=== PATIENT | female | born 1965 | race Caucasian/White ===

== ENCOUNTER 2017-05-05 11:48 | Outpatient (CLI) | END 2017-05-05 11:49 | disposition home or self-care (01) | LOC: RHC-LAB 11:48 | PROVIDERS: ATTEND Emergency Medicine | DX: M81.0 Age-related osteoporosis without current pathological fracture (principal); E66.9 Obesity, unspecified; K21.9 Gastro-esophageal reflux disease without esophagitis; Z98.84 Bariatric surgery status | CPT/HCPCS: 36415; 80053; 80061; 82306; 84443; 85025 ==

== ENCOUNTER 2017-05-26 07:54 | Outpatient (CLI) ==
--- NOTE | 2017-05-26 11:40 | MAMMO ---
EXAM: Digital screening mammogram with tomosynthesis HISTORY: Screening COMPARISON: 09/18/2013 FINDINGS: Digital MLO and CC views of the right and left breast were performed. Tomosynthesis was performed. Computer aided detection utilized. There are scattered fibroglandular densities. There is no evidence for mass, asymmetry, distortion, or suspicious calcifications in either breast. IMPRESSION: 1. No evidence of malignancy in the right or left breast. 2. Annual screening mammogram is recommended in one year. BIRADS category 1, negative examination
== END 2017-05-26 07:55 | disposition home or self-care (01) ==
LOC: RAD 07:54
PROVIDERS: ATTEND Emergency Medicine
DX: Z12.31 Encounter for screening mammogram for malignant neoplasm of breast (principal)
CPT/HCPCS: 77067

== ENCOUNTER 2017-06-19 08:26 | Emergency (ER) ==
[2017-06-19 08:33] VITALS: BP 161/88; TEMP 97.1; BMI 46.0
[2017-06-19] MEDS ORDERED: MORPHINE 4 MG/ML SYRINGE IM STA (08:42)
[2017-06-19] MEDS ORDERED: ZOFRAN 4 MG/2 ML IM STA (08:43)
--- NOTE | 2017-06-19 09:38 | ED.PDOC ---
General ED Provider: Dr. ALVARO LENTZ Chief Complaint: Back Pain Stated Complaint: back pain Time Seen by Physician: 08:30 Mode of Arrival: Walk-In Information Source: Patient Exam Limitations: No limitations Primary Care Provider: REJI MILLERXavi Nursing and Triage Documentation Reviewed and Agree: Yes Reviewed sepsis parameters & appropriate labs ordered?: Yes System Inflammatory Response Syndrome: Not Applicable Sepsis Protocol: For patient's 13 years and over: Temp is 96.8 and below OR 101 and greater Pulse >90 BPM Resp >20/minute Acutely Altered Mental Status Are patient's symptoms suggestive of a new infection, such as: -Pneumonia -Skin, Soft Tissue -Endocarditis -UTI -Bone, Joint Infection -Implantable Device -Acute Abdominal Infection -Wound Infection -Meningitis -Blood Stream Catheter Infection -Unknown System Inflammatory Response Syndrome: Not Applicable Musculoskeletal Complaint Exam - Back Pain Complaint/Exam Mechanism of Injury: Reports: No known trauma Onset/Duration: 1 day right flank with urinary symptoms Symptoms Are: Still present Timing: Intermittent Episodes Lasting: Hours Initial Severity: Moderate Current Severity: Moderate Location: Reports: Discrete Character: Reports: Aching Aggravating: Reports: Movements Alleviating: Reports: Rest Associated Signs and Symptoms: Reports: Flank pain (right) Related History: Reports: Similar episode TAD Risk Factors: Reports: None AAA Risk Factors: Reports: None Cauda Equina Risk Factors: Reports: None Epidural Abcess Risk Factors: Reports: None Related Surgical History: Reports: None Focal Tenderness: No Paraspinal Muscle Tenderness: No Paraspinal Muscle Spasm: No Scoliosis: No Lordosis: No Kyphosis: No SLR Test: Right Negative, Left Negative Hip Motion Testing Pain: Right Negative, Left Negative Focal Weakness: Present: None Focal Sensory Loss: Present: None Gait: Present: Normal Differential Diagnoses: Strain, Sprain Review of Systems - Review Of Systems Constitutional: Reports: No symptoms Eyes: Reports: No symptoms Ears, Nose, Mouth, Throat: Reports: No symptoms Respiratory: Reports: No symptoms Cardiac: Reports: No symptoms GI: Reports: No symptoms : Reports: No symptoms Musculoskeletal: Reports: Back pain Skin: Reports: No symptoms Neurological: Reports: No symptoms Endocrine: Reports: No symptoms Hematologic/Lymphatic: Reports: No symptoms All Other Systems: Reviewed and Negative Past Medical History - Past Medical History Previously Healthy: Yes Endocrine: Reports: None Cardiovascular: Reports: None Respiratory: Reports: None Hematological: Reports: None Gastrointestinal: Reports: GERD Genitourinary: Reports: None Neuro/Psych: Reports: None Musculoskeletal: Reports: None Cancer: Reports: None Last Menstrual Period: N/A - Surgical History General Surgical History: Reports: None - Family History Family History: Reports: None - Social History Smoking Status: Never smoker Hx Substance Use: No Alcohol Screening: None - Immunizations Tetanus Shot up to Date: Yes Physical Exam - Physical Exam Appearance: Well-appearing, No pain distress, Well-nourished Eyes: ARISTIDES, EOMI, Conjunctiva clear ENT: Ears normal, Nose normal, Oropharynx normal Respiratory: Airway patent, Breath sounds clear, Breath sounds equal, Respirations nonlabored Cardiovascular: RRR, Pulses normal, No rub, No murmur GI/: Soft, Nontender, No masses, Bowel sounds normal, No Organomegaly Musculoskeletal: Normal strength, ROM intact, No edema, No calf tenderness Skin: Warm, Dry, Normal color Neurological: Sensation intact, Motor intact, Reflexes intact, Cranial nerves intact, Alert, Oriented Psychiatric: Affect appropriate, Mood appropriate Interpretation - Radiology Interpretation Radiology Interpretation By: Radiologist Radiology Results: No acute changes Critical Care Note - Critical Care Note Total Time (mins): 0 Course - Course Hematology/Chemistry: 06/19/17 08:50 06/19/17 08:50 Orders, Labs, Meds: Lab Review 06/19/17 06/19/17 06/19/17 08:50 08:50 08:50 WBC 7.72 RBC 4.65 Hgb 15.0 Hct 42.9 MCV 92.3 MCH 32.3 H MCHC 35.0 RDW Coeff of Zeny 12.2 Plt Count 239 Immature Gran % (Auto) 0.1 Neut % (Auto) 70.3 Lymph % (Auto) 22.2 Davison % (Auto) 5.7 Eos % (Auto) 1.3 Baso % (Auto) 0.4 Immature Gran # (Auto) 0.0 Neut # (Auto) 5.4 Lymph # (Auto) 1.7 Davison # (Auto) 0.4 Eos # (Auto) 0.1 Baso # (Auto) 0.0 Sodium 139 Potassium 3.6 Chloride 107 Carbon Dioxide 21 Anion Gap 14.6 BUN 14 Creatinine 0.64 Estimated GFR (MDRD) 97.00 BUN/Creatinine Ratio 21.87 Glucose 90 Calcium 9.8 Total Bilirubin 0.5 AST 17 ALT 24 Alkaline Phosphatase 87 Total Protein 7.8 Albumin 4.4 Globulin 3.4 Albumin/Globulin Ratio 1.29 Urine Color Yellow Urine Clarity Clear Urine pH 5.5 Ur Specific [place] <=1.005 Urine Protein Negative Urine Glucose (UA) Negative Urine Ketones Negative Urine Blood Negative Urine Nitrite Negative Urine Bilirubin Negative Urine Urobilinogen 0.2 Ur Leukocyte Esterase Trace Urine Microscopic WBC 10-20 Ur Squamous Epith Cells 20-30 Urine Bacteria Trace Orders Category Date Time Status CBC W/ AUTO DIFF Stat LAB 06/19/17 08:39 Ordered COMPREHENSIVE METABOLIC PANEL Stat LAB 06/19/17 08:39 Ordered URINALYSIS C & S IF INDICATED Stat LAB 06/19/17 08:39 Uncollected URINE CULTURE Stat LAB 06/19/17 08:50 Received Morphine Sulfate [Morphine 4 mg/ml Syringe] MEDS 06/19/17 08:42 Stat 4 mg IM ONCE STA Ondansetron HCl/Pf [Zofran 4 mg/2 ml] MEDS 06/19/17 08:43 Stat 4 mg IM ONCE STA CT ABD/PEL WO RENAL STONE PROT Stat RADS 06/19/17 08:38 Ordered Medications Discontinued Medications Generic Name Dose Route Start Last Admin Trade Name Freq PRN Reason Stop Dose Admin Morphine Sulfate 4 mg 06/19/17 08:42 06/19/17 08:55 Morphine 4 Mg/Ml Syringe IM 06/19/17 08:43 4 mg ONCE STA Administration Ondansetron HCl 4 mg 06/19/17 08:43 06/19/17 08:55 Zofran 4 Mg/2 Ml IM 06/19/17 08:44 4 mg ONCE STA Administration Vital Signs: Temp Pulse Resp BP Pulse Ox 06/19/17 08:26 97.1 F L 67 20 161/88 H 97 Departure - Departure Time of Disposition: 10:10 Disposition: HOME SELF-CARE Discharge Problem: Backache Instructions: Flank Pain (ED) Condition: Good Pt referred to PMD for follow-up: Yes IPMP verified?: No Additional Instructions: Please call your Family Physician as soon as possible to schedule a follow-up appointment. Allergies/Adverse Reactions: Allergies Pollin Allergy (Intermediate, Uncoded 05/05/17 10:20) Sneezing, itchy eyes Home Medications: Ambulatory Orders Potassium Gluconate [Potassium] 99 mg PO DAILY 06/06/17 Hydrocodone/Acetaminophen [Winn 5-325 Tablet] 1 each PO Q6HR PRN #12 tablet Disposition Discussed With: Patient
--- NOTE | 2017-06-19 09:49 | CT ---
EXAM: CT Abdomen without contrast. CT Pelvis without contrast. HISTORY: Right flank pain. COMPARISON: None available. TECHNIQUE: Multiple axial images of the abdomen and pelvis were obtained without intravenous contras t. Images were reformatted in the sagittal and coronal plane. FINDINGS: Please note that evaluation of the abdominal and pelvic structures is limited due to lack of intravenous contrast. Subsegmental atelectasis noted in the lung bases. Degenerative changes present in the spine. Gallbladder is absent. The liver, pancreas, spleen, and adrenal glands demonstrate normal contour. Punctate nonobstructing left renal calculus noted. No right renal calculi are seen. No hydronephros is or perinephric inflammation detected. No ureteral or bladder calculi are seen. Small hiatal hernia noted. Suspect previous Obie-en-Y gastric bypass. There is no evidence for annalisa l obstruction or acute inflammation. The appendix is not seen. Mesh present along the ventral abdom inal wall. Recurrent fat-containing ventral hernia is present. No cystic inflammation identified. Uterus demonstrates normal contour. No free fluid or free air identified. Subcutaneous air in the le ft gluteal region likely due to subcutaneous injection. IMPRESSION: 1. Left nephrolithiasis without obstructive uropathy. 2. No acute inflammatory process in the abdomen or pelvis.
== END 2017-06-19 10:01 | disposition home or self-care (01) ==
LOC: ED 08:26
DX: M54.9 Dorsalgia, unspecified (principal); R10.9 Unspecified abdominal pain; R39.9 Unspecified symptoms and signs involving the genitourinary system
CPT/HCPCS: 36415; 74176; 80053; 81001; 85025; 87086; 96372; 99283

== ENCOUNTER 2017-06-30 12:27 | Outpatient (CLI) ==
--- NOTE | 2017-06-30 13:53 | DI ---
EXAM: Thoracolumbar spine two views HISTORY: Pain and thoracic spine. FINDINGS: There is mild scoliosis. Exaggerated thoracic kyphosis. Exaggerated lumbar lordosis. No acute fracture is identified. There is mild degenerative endplate and disc changes of the mid-to-low er thoracic spine. Bridging anterior osteophytic spurring is noted at the thoracic level. IMPRESSION: Degenerative changes of the spine. No acute radiographic findings.
== END 2017-06-30 12:28 | disposition home or self-care (01) ==
LOC: RAD 12:27
PROVIDERS: ATTEND Emergency Medicine
DX: M54.6 Pain in thoracic spine (principal)

== ENCOUNTER 2018-03-19 14:56 | Outpatient (CLI) | END 2018-03-19 14:57 | disposition home or self-care (01) | LOC: LAB 14:56 | PROVIDERS: ATTEND Nurse Practitioner Family | DX: R60.0 Localized edema (principal); Z79.1 Long term (current) use of non-steroidal anti-inflammatories (NSAID); Z79.899 Other long term (current) drug therapy | CPT/HCPCS: 36415; 80048; 85025 ==

== ENCOUNTER 2018-05-28 09:31 | Outpatient (CLI) ==
--- NOTE | 2018-05-28 11:32 | DI ---
EXAM: LEFT KNEE. HISTORY: Left knee pain FINDINGS: Left knee four view. There is moderate to severe tricompartment osteoarthritis. No fract ure or joint effusion. Joints are intact. Soft tissues reveal no acute finding IMPRESSION: 1. Tricompartment osteoarthritis.
--- NOTE | 2018-05-28 11:34 | DI ---
EXAM: RIGHT KNEE. HISTORY: Knee pain. FINDINGS: Right knee four view. There is moderately severe tricompartment osteoarthritis. No fract ure or dislocation is identified. No joint effusion is seen. IMPRESSION: 1. Tricompartment osteoarthritis.
--- NOTE | 2018-05-28 12:11 | MAMMO ---
EXAM: Digital screening mammogram with tomosynthesis HISTORY: Screening COMPARISON: 05/26/2017 FINDINGS: Digital MLO and CC views of the right and left breast were performed. Tomosynthesis was performed. Computer aided detection utilized. There are scattered fibroglandular densities. There is no evidence for mass, asymmetry, distortion, or suspicious calcifications in either breast. IMPRESSION: 1. No evidence of malignancy in the right or left breast. 2. Annual screening mammogram is recommended in one year. BIRADS category 1, negative examination
== END 2018-05-28 09:32 | disposition home or self-care (01) ==
LOC: RAD 09:31
PROVIDERS: ATTEND Nurse Practitioner Family
DX: Z12.31 Encounter for screening mammogram for malignant neoplasm of breast (principal)

== ENCOUNTER 2018-07-03 08:23 | Outpatient (RCR) ==
--- NOTE | 2018-07-03 09:36 | RS.OPPTEV2 ---
Date of Note: 07/03/18 Visit #: 1 Number of visits approved by Insurance: n/a Date of Evaluation: 07/03/18 Payer Source: Insurance Surgery Performed?: No Treatment Diagnosis: OA L knee History of Condition/Mechanism of Injury:: pt with long hx of OA B knees, pt scheduled to have L TKR on 07/10/18. pt plans to come to [facility] for outpatient PT. Prior Level of Function.....Patient was independent with: ADL's, Self Care, Work /Vocation (works as manager merchandise), Caregiving, Ambulation/Mobility, Community Integration/Access Functional Limitations: Sleep, Standing, Squatting, Ambulation, Community Access /Integration (pt amb with straight cane if amb longer distance or on uneven surfaces. ) Current Subjective/complaints:: pt states that she plans to come to [facility] for outpatient PT after surgery. States she is scheduled on 07/10/18 and will stay with her mother after surgery due to her works midnights. Treatment Side (optional): Left *Precautions: n/a Medical History Medical History: Arthritis Surgical History: Cholecystectomy, Tonsillectomy Surgical History Comments:: hernia repair, bowel obstruction, knee arthroscopy, gastric bypass Smoking Status: Never smoker Hx Home Medications: meloxicam, furosemide, prevacid, vit D3, iron, zinc, magnesium, calcium, B complex, multivitamin, Patient's Goals: be ready for TKR surgery Pain Assessment - Pain Description Pain Location: B knees Pain Description: Sharp, Aching Other Comments regarding Pain:: pain 0/10 sitting, increases to 5/10 with standing Functional Outcome Measure LE Functional Scale: 27 - G Codes & Severity Modifier G Codes & Modifier: n/a Source of G Code score: n/a Observation - Observation Inspection: pt presents with edema BLE. pt presents with B LE hamstring tightness R worse than L Posture: Forward Head, Rounded Shoulders, Increased Thoracic Kyphosis Handedness: Right Gait - Gait Pattern Gait Comments: pt amb with increased lat sway, decreased heel strike/toe off, as well as flexed knees. Antalgic gait pattern. General Range of Motion: BUE WFL's. BLE WFL's except knees Muscle Strength: BUE 5/5. BLE hip flex 4+/5, knee flex/ext 3/5, ankle Df/PF 4+/ 5 - Left Knee ROM Left Knee Extension: -5 Left Knee Flexion: 100 (with pain) Knee ROM Limitations: Soft Tissue Tightness, Muscle Weakness, Pain - Right Knee ROM Right Knee Extension: -9 Right Knee Flexion: 98 (with pain) Knee ROM Limitations: Soft Tissue Tightness, Muscle Weakness, Pain - Left Knee Strength Left Knee Extension: 3 Fair Left Knee Flexion: 3 Fair - Right Knee Strength Right Knee Extension: 3- Fair- Right Knee Flexion: 3- Fair- - Special Tests Comments: pt with pain to palpation of knee, difficult to perform special tests. Palpation Palpation Findings: Tenderness Comments:: pt with tenderness to palpation B knees Sensation - Sensation Right Upper Extremity: Intact/Normal Left Upper Extremity: Intact/Normal Right Lower Extremity: Intact/Normal Left Lower Extremity: Intact/Normal Balance - Sitting Balance Static Sitting Balance: Normal Dynamic Sitting Balance: Normal - Standing Balance Static Standing Balance: Good Dynamic Standing Balance: Fair Interventions - Exercise/Activities/Manual Therapy Exercises/Activities: pt performed QS, HS, hamstring stretch, SAQ, LAQ hip abd/ add LLE Manual Therapy: n/a HOME EXERCISE PROGRAM: pt given written HEP including AP, QS, HS, SAQ, LAQ, hamstring stretch. Also discussed safety in the home such as steps, equipment needed. - Charges Timed Code Treatment Minutes: 40 Total Treatment Time: 46 Procedures billed for this date of service:: yecenia mullins, ex EVALUATION COMPLEXITY LEVEL EVALUATION COMPLEXITY LEVEL: HISTORY: Low, EXAM OF BODY SYSTEMS: Low, CLINICAL PRESENTATION: Low, CLINICAL DECISION MAKING: Low Assessment Assessment: pt presents with pain in B knees with limited ROM and strength BLE as well as decreased gait safety and sequencing due to B knee pain. pt would benefit from HEP to prepare for TKR next week. Patient Education: Home Exercise Program, Education of Plan of Care Rehab Potential: Good Usp Goals Goal #1: pt demonstrate and verbalize understanding of HEP Goal to be met by: 07/03/18 Progress towards goal: Met Plan - Treatment to be Provided Procedures: Therapeutic Exercises, Patient Education Modalities: No Modalities - Treatment Plan Frequency: 1 time visit Duration: One time treatment Dates of Usp Goals: 07/03/18 Expiration date of current Insurance Approval:: n/a - Treatment Code (1) Primary localized osteoarthritis of left knee Code(s): M17.12 - UNILATERAL PRIMARY OSTEOARTHRITIS, LEFT KNEE (2) Left knee pain Code(s): M25.562 - PAIN IN LEFT KNEE Qualifiers: Chronicity: chronic Qualified Code(s): M25.562 - Pain in left knee; G89.29 - Other chronic pain (3) Joint stiffness of knee Qualifiers: Laterality: left Qualified Code(s): M25.662 - Stiffness of left knee, not elsewhere classified (4) Muscle weakness Code(s): M62.81 - MUSCLE WEAKNESS (GENERALIZED)
== END 2018-07-06 23:59 ==
PROVIDERS: ATTEND Orthopaedic Surgery
DX: M17.12 Unilateral primary osteoarthritis, left knee (principal)

== ENCOUNTER 2018-07-16 09:09 | Outpatient (CLI) ==
--- NOTE | 2018-07-16 09:52 | US ---
EXAM: ULTRASOUND LOWER EXTREMITY VENOUS DOPPLER EXAM HISTORY: Pain and tenderness, swelling. FINDINGS: Left lower extremity venous Doppler exam. Real time zelaya-scale, Doppler spectral analysis and color-flow Doppler imaging performed. The veins targeted for evaluation include the common femo ral, greater saphenous, profundus, femoral, popliteal, peroneal, anterior tibial and posterior tibial . The evaluated veins demonstrated normal spontaneous flow and compression without evidence of thr ombosis. IMPRESSION: No venous thrombosis identified within the areas evaluated.
== END 2018-07-16 09:10 | disposition home or self-care (01) ==
LOC: RAD 09:09
PROVIDERS: ATTEND Family Medicine
DX: M79.662 Pain in left lower leg (principal); Z96.652 Presence of left artificial knee joint

== ENCOUNTER 2018-09-14 09:36 | Outpatient (CLI) | payer BC, OTHER | END 2018-09-14 09:37 | disposition home or self-care (01) | LOC: RHC-LAB 09:36 → FCC-LAB 09:37 | PROVIDERS: ATTEND Family Medicine | DX: I26.99 Other pulmonary embolism without acute cor pulmonale (principal) | CPT/HCPCS: 36415; 85705 ==